=== PATIENT | male | born 1985 | race Caucasian/White ===

== ENCOUNTER 2021-07-09 12:55 | Emergency (ER) | payer SELFPAY ==
[~2021-07-09] VITALS: Ht 172.7 cm; Wt 81.7 kg
[2021-07-09] MEDS ORDERED: CLEOCIN HCL300 MG PO (14:23)
== END 2021-07-09 14:31 | disposition home or self-care (01) ==
LOC: ED 12:55
PROC: 0H98XZZ Drainage of Buttock Skin, External Approach (ICD-10-PCS; principal; 2021-07-09)
DX: L02.31 Cutaneous abscess of buttock (principal); F17.200 Nicotine dependence, unspecified, uncomplicated; Z88.2 Allergy status to sulfonamides
CPT/HCPCS: 10060; 87070; 87205; 99283-25